=== PATIENT | female | born 2000 | race Caucasian/White ===

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

== ENCOUNTER 2022-03-16 13:29 | Emergency (ER) | payer BC, SELFPAY ==
[~2022-03-16] VITALS: Ht 162.6 cm; Wt 59.3 kg
[2022-03-16 13:30] VITALS: BP 116/58
== END 2022-03-16 13:48 | disposition left against medical advice (07) ==
LOC: M ED 13:29
DX: Z53.21 Procedure and treatment not carried out due to patient leaving prior to being seen by health care provider (principal)

== ENCOUNTER → 2023-05-22 | Outpatient (CLI) | payer BC | LOC: M WUC 12:02 | PROVIDERS: ATTEND Nurse Practitioner Family | DX: M25.562 Pain in left knee (principal) ==